=== PATIENT | male | born 1930 | race Caucasian/White ===

== ENCOUNTER 2017-02-08 09:55 | Emergency (ER) | payer MEDICARE, OTHER, MEDICAID ==
[~2017-02-08] VITALS: Ht 172.7 cm; Wt 82.0 kg
[~2017-02-08 09:55] MED LIST: ASPI-1159 PO; ATOR20TA65 PO; CHOL500010 PO; CLOP75TA15 PO; DILT180C3 PO; DONE10TA43 PO; FAMO20TA8 PO; GABA-529 PO; LIDO30CR TP; LOSA100T14 PO
[2017-02-08] MEDS ORDERED: LIDOCAINE HCL 1% 20ML VIAL (Pyxis) INJ MC ONE (12:00)
[2017-02-08] MEDS ORDERED: BACITRACIN ZINC OINT UDPKT TOP ONE (12:00)
[2017-02-08 13:00] LABS: CLARITY URINE CLEAR (CLEAR); COLOR URINE YELLOW (YELLOW); GLUCOSE URINE NEGATIVE (NEGATIVE); KETONES URINE NEGATIVE (NEGATIVE); LEUKOCYTE ESTERASE URINE NEGATIVE (NEGATIVE); NITRITE URINE NEGATIVE (NEGATIVE); OCCULT BLOOD URINE NEGATIVE (NEGATIVE); PROTEIN URINE NEGATIVE (NEGATIVE); SPECIFIC GRAVITY URINE 1.012 (1.005-1.030); UROBILINOGEN URINE 0.2 E.U./dL (0.2-1.0)
[2017-02-08 13:21] LABS: BASOPHILS % 0.5 % (0.0-2.0); EOSINOPHILS % 2.7 % (0.0-5.0); HEMATOCRIT. 38.6 % (42.0-52.0); HEMOGLOBIN. 13.2 g/dL (14.0-18.0); LYMPHOCYTES % 19.9 % (20.0-50.0); MEAN CORPUSCULAR HEMOGLOBIN 30.9 pg (28.0-32.0); MEAN CORPUSCULAR VOLUME 90.5 fL (80.0-94.0); MEAN PLATELET VOLUME 9.1 fl (7.4-10.4); MONOCYTES % 6.2 % (2.0-8.0); NEUTROPHILS % 70.7 % (40.0-76.0); PLATELET 151 x1000/uL (130-400); RED BLOOD CELL COUNT 4.27 mill/uL (4.7-6.1); RED CELL DISTRIBUTION WIDTH 13.3 % (11.6-14.6)
[2017-02-08 13:28] LABS: INR 1.2; PROTHROMBIN TIME 12.2 sec (9.4-11.6)
[2017-02-08 13:33] LABS: CARBON DIOXIDE 28 mEq/L (21-32); CHLORIDE 109 mEq/L (98-107)
[2017-02-08] MEDS ORDERED: AMOXICILLIN/POTASSIUM CLAVULANATE 875/125MG TAB PO ONE (13:45)
[2017-02-08 14:34] VITALS: BP 140/68
== END 2017-02-08 14:37 | disposition home or self-care (01) ==
LOC: ER 09:55
DX: L03.011 Cellulitis of right finger (principal); I11.9 Hypertensive heart disease without heart failure; E78.00 Pure hypercholesterolemia, unspecified; Z79.899 Other long term (current) drug therapy
CPT/HCPCS: 10060; 36415; 73130; 80053; 81003; 83605; 85025; 85610; 87040; 87070; 87077; 87086; 87186; 87205; 99285; J3490; 99284

== ENCOUNTER 2017-02-09 15:44 | Emergency (ER) | payer MEDICARE, OTHER ==
[~2017-02-09] VITALS: Ht 172.7 cm; Wt 79.0 kg
[2017-02-09 16:14] VITALS: BP 139/68
== END 2017-02-09 18:13 | disposition left against medical advice (07) ==
LOC: ER 15:44
DX: Z48.01 Encounter for change or removal of surgical wound dressing (principal); Z53.21 Procedure and treatment not carried out due to patient leaving prior to being seen by health care provider

== ENCOUNTER 2017-02-10 08:41 | Emergency (ER) | payer MEDICARE, OTHER, MEDICAID ==
[~2017-02-10] VITALS: Ht 172.7 cm; Wt 80.0 kg
[2017-02-10 08:54] VITALS: BP 136/86
[2017-02-10] MEDS ORDERED: AMOXICILLIN/POTASSIUM CLAVULANATE 875/125MG TAB PO ONE (09:45)
[2017-02-10] MEDS ORDERED: SULFAMETHOXAZOLE/TRIMETHOPRIM 800/160MG TABLET PO ONE (09:45)
== END 2017-02-10 10:15 | disposition home or self-care (01) ==
LOC: ER 09:16
DX: L03.011 Cellulitis of right finger (principal); I11.9 Hypertensive heart disease without heart failure; E78.00 Pure hypercholesterolemia, unspecified; Z79.82 Long term (current) use of aspirin; Z79.01 Long term (current) use of anticoagulants
CPT/HCPCS: 99283

== ENCOUNTER 2017-11-28 18:21 | Emergency (ER) | payer MEDICARE, OTHER, MEDICAID ==
[~2017-11-28] VITALS: Ht 172.7 cm; Wt 75.2 kg
[2017-11-29 11:26] LABS: BASOPHILS % 0.4 % (0.0-2.0); EOSINOPHILS % 3.1 % (0.0-5.0); HEMATOCRIT. 42.5 % (42.0-52.0); HEMOGLOBIN. 14.3 g/dL (14.0-18.0); MEAN CORPUSCULAR HEMOGLOBIN 30.8 pg (28.0-32.0); MEAN CORPUSCULAR VOLUME 91.7 fL (80.0-94.0); MEAN PLATELET VOLUME 9.1 fl (7.4-10.4); MONOCYTES % 7.7 % (2.0-8.0); NEUTROPHILS % 64.8 % (40.0-76.0); PLATELET 127 x1000/uL (130-400); RED BLOOD CELL COUNT 4.63 mill/uL (4.7-6.1); RED CELL DISTRIBUTION WIDTH 13.3 % (11.6-14.6)
[2017-11-29 11:36] LABS: CHLORIDE 108 mEq/L (98-107)
[2017-11-29 11:41] LABS: ETHANOL BLOOD < 10 mg/dL
[2017-11-29 19:00] VITALS: BP 135/73
== END 2017-11-29 19:05 | disposition home or self-care (01) ==
LOC: ER 18:21
DX: M25.551 Pain in right hip (principal); G89.29 Other chronic pain; I11.9 Hypertensive heart disease without heart failure; E78.00 Pure hypercholesterolemia, unspecified; M85.80 Other specified disorders of bone density and structure, unspecified site; Z59.0 Homelessness; Z96.641 Presence of right artificial hip joint
CPT/HCPCS: 36415; 71045; 73502; 80053; 80307; 80329; 85025; 99285; G0482

== ENCOUNTER 2017-11-30 21:10 | Emergency (ER) | payer MEDICARE, OTHER, MEDICAID ==
[~2017-11-30] VITALS: Ht 177.8 cm; Wt 78.0 kg
[2017-11-30] MEDS ORDERED: LIDOCAINE HCL 1%/EPI 1:200,000 30 ML VIAL MC ONE (22:30)
[2017-11-30] MEDS ORDERED: BACITRACIN ZINC OINT UDPKT TOP ONE (22:30)
[2017-11-30 23:36] LABS: BASOPHILS % 0.3 % (0.0-2.0); EOSINOPHILS % 1.3 % (0.0-5.0); HEMATOCRIT. 40.4 % (42.0-52.0); HEMOGLOBIN. 13.7 g/dL (14.0-18.0); LYMPHOCYTES % 14.2 % (20.0-50.0); MEAN CORPUSCULAR HEMOGLOBIN 30.8 pg (28.0-32.0); MEAN CORPUSCULAR VOLUME 90.5 fL (80.0-94.0); MEAN PLATELET VOLUME 9.8 fl (7.4-10.4); MONOCYTES % 8.6 % (2.0-8.0); NEUTROPHILS % 75.6 % (40.0-76.0); PLATELET 138 x1000/uL (130-400); RED BLOOD CELL COUNT 4.46 mill/uL (4.7-6.1); RED CELL DISTRIBUTION WIDTH 13.5 % (11.6-14.6)
[2017-11-30 23:43] LABS: INR 1.2; PROTHROMBIN TIME 12.6 sec (9.4-11.6)
[2017-11-30 23:44] LABS: CHLORIDE 108 mEq/L (98-107)
[2017-11-30 23:49] LABS: AMMONIA 25 uMol/L (<32)
[2017-11-30 23:51] LABS: ETHANOL BLOOD < 10 mg/dL
[2017-11-30 23:55] LABS: CREATINE KINASE 171 IU/L (39-308)
[2017-12-01] MEDS ORDERED: ACETAMINOPHEN 325MG TABLET PO ONE (03:45)
[2017-12-01 13:50] VITALS: BP 147/79
== END 2017-12-01 13:53 | disposition home or self-care (01) ==
LOC: ER 21:10
DX: S01.81XA Laceration without foreign body of other part of head, initial encounter (principal); S02.2XXA Fracture of nasal bones, initial encounter for closed fracture; I10 Essential (primary) hypertension; J44.9 Chronic obstructive pulmonary disease, unspecified; E78.00 Pure hypercholesterolemia, unspecified; Y08.89XA Assault by other specified means, initial encounter; Y93.9 Activity, unspecified; Y92.9 Unspecified place or not applicable; Z79.82 Long term (current) use of aspirin; Z96.649 Presence of unspecified artificial hip joint
CPT/HCPCS: 12011; 36415; 70450; 70486; 71045; 72125; 80053; 82140; 82550; 83605; 83690; 83880; 84484; 85025; 85610; 93005; 99285; G0482